=== PATIENT | female | born 1970 | race Caucasian/White ===

== ENCOUNTER → 2018-02-04 | Outpatient (REF) ==
[~2018-02-04] MED LIST: BCP; BIRTH CONTROL; CEPH250C37 PO; HYDR-385 PO; KET10 PO; PER PO
== END ==
DX: Z02.9 Encounter for administrative examinations, unspecified (principal)

== ENCOUNTER → 2018-03-03 | Outpatient (CLI) | payer OTHER ==
[~2018-03-03] MED LIST changes: +IBUP200C71 PO
--- NOTE | 2018-03-03 16:04 | RADIOLOGY IMAGING REPORT ---
FACILITY: [facility] PATIENT NAME: Brenda Perez : 1970 MR: [id number] V: [id number] EXAM DATE: [id number] ORDERING PHYSICIAN: CARMEN MOTLEY TECHNOLOGIST: Location: [facility] [place] Patient: Brenda Perez : 1970 Visit/Account:[id number] Date of Sevice: 03/03/2018 Exam type: WRIST RIGHT MIN 3 VIEW History: Right wrist pain x3 months, volleyball injury lateral pain Comparison: None Findings: Three views of the right wrist demonstrate a small vertical lucency seen along the volar aspect of th e distal right radius on the lateral view. This could represent a superimposed shadow although a sma ll nondisplaced fractures not excluded.. There also appears to be a small oblique lucency traversing the distal most aspect of the right radius on the oblique view with the same differential diagnosis IMPRESSION: 1. Small vertical lucency seen along the volar aspect of the distal right radius on the lateral view . This could represent a superimposed shadow although small nonspecific fracture not excluded Small oblique lucency traversing the distalmost aspect the right radius on the oblique view with the same differential diagnosis. If patient's symptoms persist CT or MR may be helpful Report Dictated By: Paulette Wang MD at 03/03/2018 3:56 PM Report E-Signed By: Paulette Wang MD at 03/03/2018 3:59 PM WSN:[id number]
== END ==
LOC: RAD 15:21
PROVIDERS: ATTEND Nurse Practitioner Primary Care
DX: R93.8 Abnormal findings on diagnostic imaging of other specified body structures (principal)

== ENCOUNTER → 2018-03-19 | Outpatient (CLI) | payer OTHER ==
[~2018-03-19] MED LIST changes: +IBUP-136 PO; -IBUP200C71 PO
--- NOTE | 2018-03-19 14:02 | RADIOLOGY IMAGING REPORT ---
FACILITY: [facility] PATIENT NAME: Brenda Perez : 1970 MR: [id number] V: [id number] EXAM DATE: ORDERING PHYSICIAN: CARMEN MOTLEY TECHNOLOGIST: Location: [facility] - [place], [place] Patient: Brenda Perez : 1970 Visit/Account:[id number] Date of Sevice: 03/19/2018 MRI of the right wrist Indication: Wrist pain. Injury 3 months ago. Possible fracture. Comparison: Recent plain films 03/03/2018 were reviewed. Technique: Coronal T1-weighted, T2-weighted fat-saturated, gradient echo, sagittal T1-weighted and ax ial T2-weighted fat-saturated images were obtained through the right wrist. FINDINGS: The marrow pattern of the distal radius and the distal ulna is normal. There is no evidence of fractu re or bone contusion. The marrow pattern of the carpal bones and the metacarpal bases is normal. No evidence of carpal frac ture or carpal bone contusion. On this nonarthrographic examination, the triangular fibrocartilage appears intact. Lunotriquetral li gament is normal. On the thin section coronal images, there is focal linear T2 signal involving the c entral portion of the scapholunate ligament. A central tear of the scapholunate ligament could have t his appearance. No widening of the scapholunate joint space. Correlate clinically. The included intrinsic musculature the hand is normal in signal. At the level of Alona's tubercle, the extensor compartment tendons are normal in thickness and signa l. Contents of the carpal tunnel are normal. No mass or cyst is seen within Guyon's canal. IMPRESSION: 1. No evidence of fracture or bone contusion at the right wrist. 2. Increased linear T2 signal within the scapholunate ligament on the thin section sequence which is suspicious for a central tear of the scapholunate ligament. Correlate clinically. Report Dictated By: Jose Martin Waggoner at 03/19/2018 1:47 PM Report E-Signed By: Jose Martin Waggoner at 03/19/2018 1:58 PM WSN:[id number]
== END ==
LOC: MRI 02:14
PROVIDERS: ATTEND Nurse Practitioner Primary Care
DX: M25.531 Pain in right wrist (principal)

== ENCOUNTER → 2019-02-03 | Outpatient (REF) | DX: Z02.9 Encounter for administrative examinations, unspecified (principal) ==